=== PATIENT | female | born 1985 | race Caucasian/White ===

== ENCOUNTER 2017-03-06 06:10 | Inpatient (IN) | payer OTHER ==
[2017-03-06 07:11] VITALS: BMI 44.6
[2017-03-06] MEDS ORDERED: ELECTROLYTE-148 SOLN 500 ML IV ONE (07:52)
[2017-03-06] MEDS ORDERED: CITRIC ACID/SODIUM CITRATE 30 ML UNIT-DOSE CUP PO ONE (07:52)
[2017-03-06] MEDS ORDERED: ELECTROLYTE-148 SOLN 1,000 ML IV SCH (08:00)
[2017-03-06] MEDS ORDERED: ONDANSETRON 4 MG/2 ML VIAL IVPB PRN (08:02)
[2017-03-06] MEDS ORDERED: morphine SULFATE/Preservative Free 0.5 MG/ML (1cc Syringe) EP ONE (08:02)
--- NOTE | 2017-03-06 08:10 | HP ---
Past Medical History - Primary Care Physician PCP:: Kandice Patel - Admission Chief Complaint: 31 ys , 39 weeks previous c/s x3, GDM diet controlled , requests for repeat c/s History of Present Illness: pnc at [address] [place] [id number]. wt gain 35 lbs work Up Opos, , Rpr nr, Hiv neg, Hbsag neg,, Rubella pos, pap nilm, 1 hr Gtt 137, 3 hr gtt 89, 216, 171, 147, GDM diagnosed MFM managed diabetes( GDM) , diet controlled, monitored by serial sono, , BPP, nst reactive , Quantiferon pos, gc/ct neg, Gbs -neg NT screen neg, Modified, sequential neg, MFM sono noted, echo normal History Source: Patient, Medical Record Limitations to Obtaining History: No Limitations - Past Medical History TRAVEL PT: No: Migraine, Seizure Cardiovascular: No: HTN, Murmur Pulmonary: No: Asthma Gastrointestinal: No: Constipation, Gastritis Renal/: No: UTI ...: 4 ...Para: 3 ...Term: 3 ...: 0 ...Spon : 0 ...Induced : 0 ...Multiple Gestation: 0 ...LMP: 06/01/16 ... Weeks Gestation by Dates: 39.4 ...EDC by Dates: 03/08/17 ...EDC by Sono: 03/12/17 (39.2 weeks by sono ) Additional OB History: G1 10/10/2005 primar c/s -40 weeks 7'12' [facility]. G2 09/03 Repeat c/s 40 weeks, 7' [facility]. G3 02/16/2015 repeat c/s 40 weeks 7'2" h/o GDM sj[facility] Heme/Onc: Yes: Anemia Infectious Disease: No: HIV, STD's Psych: No: Addictions, Bipolar, Depression, Panic Endocrine: Yes: Other (GDM diet controlled) - Past Surgical History Past Surgical History: Yes: (08/2005, 08/2013, 01/2015) Hx Myomectomy: No Hx Transabdominal Cerclage: No - Smoking History Smoking history: Never smoked Have you smoked in the past 12 months: No Aproximately how many cigarettes per day: 0 - Alcohol/Substance Use Hx Alcohol Use: No History of Substance Use: reports: None Home Medications - Allergies Allergies/Adverse Reactions: Allergies Allergy/AdvReac Type Severity Reaction Status Date / Time No Known Allergies Allergy Verified 02/26/17 11:25 - Home Medications Home Medications: Ambulatory Orders Vit/Iron Fumarate/FA [ Tablet] 1 each PO DAILY 01/24/17 Physical Exam - Maternity Vital Signs: Vital Signs Temperature 98.1 F 03/06/17 06:10 Pulse Rate 79 03/06/17 06:10 Respiratory Rate 20 03/06/17 06:10 Blood Pressure 124/71 03/06/17 06:10 O2 Sat by Pulse Oximetry (%) Selected Entries 03/06/17 06:10 Weight 260 lb Constitutional: Yes: Well Nourished, No Distress, Obese Eyes: Yes: WNL HENT: Yes: WNL, Normocephalic Neck: Yes: WNL Cardiovascular: Yes: WNL, Regular Rate and Rhythm Breast(s): Yes: WNL - Abdominal Exam/OB Fundal Height: 40 Number of Fetuses: Single Presentation: Vertex Contractions: Yes Regularity: Irregular Intensity: Mild Monitor Mode: External (15) Heart Rate (range): 150 Heart Rate Location: [facility] Category: I Accelerations: Uniform Decelerations: Variable - Vaginal Exam/OB Vaginal Bleediing: No Speculum Exam: No Dilatation (cm): close Effacement (%): unefface Presentation: Vertex/Position Station: -3 - Physical Exam Musculoskeletal: Yes: WNL, Muscle Weakness Extremities: No: Calf Tenderness Edema: LLE: 1+, RLE: 1+ Integumentary: Yes: Incision (pfannensteil scar) Deep Tendon Reflex Grade: Normal +2 ...Motor Strength: WNL Psychiatric: Yes: WNL, Alert, Oriented - Labs Lab Results: Laboratory Tests 03/04/17 03/04/17 03/04/17 10:59 10:59 10:59 WBC 6.9 D Hgb 11.8 Hct 35.5 Plt Count 203 D Neutrophils % 71.9 Lymphocytes % 20.8 D Monocytes % 6.0 D Eosinophils % 1.0 Basophils % 0.3 INR 0.90 Sodium Potassium Chloride Carbon Dioxide BUN Creatinine POC Glucometer Random Glucose Calcium Total Bilirubin AST ALT Albumin Urine Protein Negative Urine Glucose (UA) Negative Urine Ketones Negative Urine RBC <1 Urine WBC 8 Ur Epithelial Cells Many Urine Bacteria Rare RPR Titer 03/04/17 03/04/17 03/06/17 10:59 10:59 08:00 WBC Hgb Hct Plt Count Neutrophils % Lymphocytes % Monocytes % Eosinophils % Basophils % INR Sodium 138 Potassium 4.2 Chloride 106 Carbon Dioxide 23 BUN 12 Creatinine 0.5 L D POC Glucometer 78 Random Glucose 76 Calcium 8.2 L Total Bilirubin 0.4 D AST 15 D ALT 10 L D Albumin 2.3 L D Urine Protein Urine Glucose (UA) Urine Ketones Urine RBC Urine WBC Ur Epithelial Cells Urine Bacteria RPR Titer Nonreactive Hemorrhage Risk Assessment - Risk Factors Medium Risk Factors: Yes: Obesity (BMI >40) Risk Score: 1 Risk Level: Medium Risk Problem List - Problems (1) with 39 completed weeks gestation Code(s): Z3A.39 - 39 WEEKS GESTATION OF (2) Previous delivery affecting Code(s): O34.21 - MATERNAL CARE FOR SCAR FROM PREVIOUS * DO NOT USE * (3) Morbid obesity with BMI of 40.0-44.9, adult Code(s): E66.01 - MORBID (SEVERE) OBESITY DUE TO EXCESS CALORIES Z68.41 - BODY MASS INDEX (BMI) 40.0-44.9, ADULT Assessment/Plan 31 yrs , , 39.2/7 weeks , previous c/s x3, not in labor ,morbid obesity , requests for repeat c/section
[2017-03-06] MEDS: OXYTOCIN 20 UNITS in 0.9% NS 1,000 ML IV SCH ×2 (09:35→22:46)
[2017-03-06] MEDS ORDERED: METHYLERGONOVINE MALEATE 0.2 MG/1 ML AMP IM PRN (09:44)
--- NOTE | 2017-03-06 09:58 | OP ---
Operative Note - Note: Operative Date: 03/06/17 Pre-Operative Diagnosis: 39 weeks, previous c/sx3, GDM, morbid obesity Operation: Repeat LFTC/Section Findings: 8.35 AM, Baby Boy, Vx LOT position, 9/9, Wt 6'14", Ht 19.5" , rectus muscle transected lateral, bilaterally both tubes & ovaries normal bladder high on lower segment adherent Both Tubes & Ovaries normal . dr fung compressor stations superintendent was present in the room Surgeon: Kandice Patel Estimator And Drafter Supervisor: Kiran Rosenthal Anesthesiologist/REAL ESTATE ATTORNEY: Ab Pickard Anesthesia: Spinal Specimens Removed: placenta. cord blood Estimated Blood Loss (mls): 500 Drains, Volume Out (mls): 100 (isabel color, lincoln out put ) Fluid Volume Replaced (mls): 1,300 (2 gm iv ancef )
[2017-03-06] MEDS ORDERED: ceFAZolin 2 GRAM PREMIX BAG IVPB SCH (10:00)
[2017-03-06] MEDS ORDERED: CEFAZOLIN 2 GM/D5W 50 ML IVPB SCH (12:00)
[2017-03-06] MEDS: CEFAZOLIN 2 GM/D5W 50 ML IVPB SCH (16:14)
[2017-03-06] MEDS: IBUPROFEN 800 MG/8 ML IJ IVPB PRN (22:45)
[2017-03-07] MEDS: CEFAZOLIN 2 GM/D5W 50 ML IVPB SCH ×2 (00:57→08:00)
[2017-03-07] MEDS: IBUPROFEN 800 MG/8 ML IJ IVPB PRN (06:10)
[2017-03-07] MEDS ORDERED: oxyCODONE HCL 5 MG TABLET PO PRN (08:00)
[2017-03-07 08:06] LABS: BASOPHIL 0.3 % (0-2.0); EOSINOPHIL 0.8 % (0-4.5); MCH 27.6 pg (25.7-33.7); MCHC 33.2 g/dl (32.0-36.0); MEAN CELL VOLUME 83.1 fl (80-96); MEAN PLT VOLUME 7.6 fl (7.5-11.1); NEUTROPHILS 80.5 % (42.8-82.8); PLATELET COUNT 162 K/MM3 (134-434); RDW 18.3 % (11.6-15.6); WHITE BLOOD COUNT 7.5 K/mm3 (4.0-10.0)
--- NOTE | 2017-03-07 08:42 | PN ---
Post Progress Note - Subjective Subjective: 31 yo Para 4, status post primary , seen and evaluated. Doing well, no complaints. Post Day: 1 Type of Delivery: Repeat C/S Vital Signs: Vital Signs Temperature 98.0 F 03/07/17 05:41 Pulse Rate 98 H 03/07/17 05:41 Respiratory Rate 20 03/07/17 06:09 Blood Pressure 115/78 03/07/17 05:41 O2 Sat by Pulse Oximetry (%) 100 03/06/17 10:20 Breast Exam: Yes: Soft Uterus: Yes: Fundus Firm Incision: Yes: Dressing dry and intact Abdomen/GI: Yes: Abdomen soft Lochia: Yes: Rubra Lochia, amount: Small Extremities: Yes: Calves non-tender Perineum: Yes: Intact Activity: Other (She's lying in bed) - Labs Labs: CBC WBC 7.5 K/mm3 (4.0-10.0) 03/07/17 06:00 RBC 4.01 M/mm3 (3.60-5.2) 03/07/17 06:00 Hgb 11.0 GM/dL (10.7-15.3) 03/07/17 06:00 Hct 33.3 % (32.4-45.2) 03/07/17 06:00 MCV 83.1 fl (80-96) 03/07/17 06:00 MCH 27.6 pg (25.7-33.7) 03/07/17 06:00 MCHC 33.2 g/dl (32.0-36.0) 03/07/17 06:00 RDW 18.3 % (11.6-15.6) H 03/07/17 06:00 Plt Count 162 K/MM3 (134-434) D 03/07/17 06:00 MPV 7.6 fl (7.5-11.1) 03/07/17 06:00 Neutrophils % 80.5 % (42.8-82.8) 03/07/17 06:00 Lymphocytes % 13.7 % (8-40) D 03/07/17 06:00 Monocytes % 4.7 % (3.8-10.2) 03/07/17 06:00 Eosinophils % 0.8 % (0-4.5) 07/18/17 06:00 Basophils % 0.3 % (0-2.0) 03/07/17 06:00 Assessment/Plan Status post primary Stable Ambulation Analgesia as needed Anticipate
[2017-03-07] MEDS ORDERED: BISACODYL 10 MG SUPP.RECT RC PRN (09:44)
[2017-03-07] MEDS: OXYTOCIN 20 UNITS in 0.9% NS 1,000 ML IV SCH (09:45)
[2017-03-07] MEDS: ENOXAPARIN NA (PORCINE) 40 MG/0.4 ML DISP.SYRIN SQ SCH (10:00)
[2017-03-07] MEDS ORDERED: DIPHTH,PERTUSS(ACELL),TET 0.5 ML DISP.SYRIN IM ONE (11:52)
--- NOTE | 2017-03-07 13:41 | OP ---
DATE OF OPERATION: 03/06/2017 PREOPERATIVE DIAGNOSIS: A 39-week , previous section x3, gestational diabetes diet-controlled, morbid obesity. OPERATION DONE: A repeat low flap transverse section. SURGEON: Kandice Patel MD MICROSTRATEGY ARCHITECT SURGEON: THAI Moon ANESTHESIOLOGIST: Ab Pickard MD ANESTHESIA: Spinal. FINDINGS: This is a 31-year-old 4 para 3-0-0-3 at 39.2 weeks gestation , not in labor, patient is obese, BMI is 44.6, weight is 260 pounds. PROCEDURE: Patient was taken to the operating room table. Abdomen was shaved, prepped. De La Rosa catheter was placed. Spinal anesthesia was given. She was placed in supine position. Then, abdomen was painted and draped in the usual manner. A Pfannenstiel incision was made through previous scar. The skin and subcutaneous tissue were entered. Anterior rectus sheath with scar tissue was incised transversely, and the muscles were laterally. The parietal peritoneum was opened vertically. Only a small opening could be opened, and bladder was high. The rectus muscle was transected laterally on both sides. Then, adequate exposure was obtained. The bladder was pushed down. There were some adhesions in the lower flap, which were incised, and the lower uterine segment was , and the bladder was still high, adherent in the lower segment. Incision was made transversely and further extended laterally. Then, amniotic fluid was cleared. Baby boy was delivered at 8:35 a.m. from LOT position. was 9, 9. Cord was clamped, cut. Cord blood was collected. Babys weight was [address] Whaley, the pharmacy technician program director, was present in the room. Then, placenta was removed completely with the membranes. Uterine cavity was cleaned. Then, the uterine incision was closed in two layers. The first layer was a continuous locking with a Biosyn 0 suture, second layer was a continuous intermittently locking with a transverse mattress suture, intermittently locking Biosyn 0 suture was used. Then, some hemostatic sutures were required to complete hemostasis, then, Biosyn suture. Both the tubes and ovaries were normal. Sponge, instrument, and needle counts were correct. Irrigation was done. Then, the closure of the abdomen was done. The parietal peritoneum was closed transversely with vicryl o suture . Muscles were approximated together with a Biosyn 0 suture. A pursestring suture was taken from the left side to the right side muscles to the left side, and muscles were approximated together. Then, anterior rectus sheath was mobilized from the scar of the skin both sides, and it was freed and hemostasis was checked below anterior rectus sheath flap. Anterior rectus sheath was closed with a Vicryl 0 suture. Hemostasis was verified, and subcutaneous tissue was approximated with a Biosyn 0 suture and interrupted suture, and the skin was approximated with deena. Estimated blood loss was 500 mL. Pressure dressing was given. Blood clots were removed from the vagina. Urine output intraoperatively was 100 mL, and she was given 2 g of IV Ancef prior to the incision. Patient tolerated the procedure well, and she was transferred to the recovery room in stable condition. Aniya [id number] MTDD
--- NOTE | 2017-03-07 14:49 | PN ---
Progress Note, Physician Chief Complaint: s/p c section under spinal anesthesia History of Present Illness: post op day one duramorph in spinal for post op pain control - Current Medication List Current Medications: Active Medications Acetaminophen (Tylenol -) 650 mg PO Q4H PRN PRN Reason: FEVER OR PAIN Bisacodyl (Dulcolax Suppository -) 10 mg RC PRN PRN PRN Reason: CONSTIPATION Diphenhydramine HCl (Benadryl Injection -) 25 mg IVPUSH Q4H PRN PRN Reason: Pruritis Last Admin: 03/06/17 18:21 Dose: 25 mg Enoxaparin Sodium (Lovenox -) 40 mg SQ DAILY [facility] Last Admin: 03/07/17 10:00 Dose: 40 mg Ferrous Sulfate (Feosol -) 325 mg PO BID [facility] Oxytocin/Sodium Chloride (Normal Saline+20 Units Oxytocin -) 1,000 mls @ 125 mls/hr IV ASDIR [facility] Last Admin: 03/06/17 22:46 Dose: 125 mls/hr Cefazolin Sodium/Dextrose (Ancef 2 Gm Premixed Ivpb -) 50 mls @ 100 mls/hr IVPB Q8H [facility] Stop: 03/07/17 15:59 Last Admin: 03/07/17 08:00 Dose: 100 mls/hr Ibuprofen (Caldolor Injection -) 600 mg IVPB Q8H PRN PRN Reason: FEVER Last Admin: 03/07/17 06:10 Dose: 600 mg Ibuprofen (Motrin -) 600 mg PO Q4H PRN PRN Reason: PAIN Methylergonovine Maleate (Methergine Injection -) 0.2 mg IM Q4H PRN PRN Reason: Excessive Bleeding (L&D) Last Admin: 03/06/17 22:44 Dose: 0.2 mg Oxycodone HCl (Roxicodone -) 5 mg PO Q4H PRN PRN Reason: PAIN LEVEL 1-5 Oxycodone HCl (Roxicodone -) 10 mg PO Q4H PRN PRN Reason: PAIN LEVEL 6-10 Multivit/Folic Acid/Iron ( Vitamins (Sjr) -) 1 tab PO DAILY [facility] Senna/Docusate Sodium (Pericolace -) 2 tablet PO HS PRN PRN Reason: CONSTIPATION Simethicone (Mylicon -) 80 mg PO Q4H PRN PRN Reason: GAS - Objective Vital Signs: Vital Signs Temperature 98.4 F 03/07/17 09:00 Pulse Rate 79 03/07/17 09:00 Respiratory Rate 20 03/07/17 11:00 Blood Pressure 112/76 03/07/17 09:00 O2 Sat by Pulse Oximetry (%) 100 03/06/17 10:20 Constitutional: Yes: Well Nourished Cardiovascular: Yes: WNL Respiratory: Yes: WNL Gastrointestinal: Yes: WNL Neurological: Yes: WNL Labs: CBC, BMP 03/07/17 06:00 Assessment/Plan Patient doing well, no adverse effect of anesthetic, complain of itching, controlled by benadryl, pain controlled, dept of anesthesiology will sign off care at this time
[2017-03-07] MEDS: IBUPROFEN 600 MG TABLET (FP) PO PRN (15:00)
[2017-03-07] MEDS: SIMETHICONE 80 MG TAB.CHEW (FP) PO PRN ×2 (15:00→21:43)
[2017-03-07] MEDS: ACETAMINOPHEN 325 MG TABLET (FP) PO PRN ×2 (15:01→21:40)
[2017-03-07] MEDS: PRENATAL VITAMINS W/ FOLIC ACID TABLET (FP) PO SCH (16:21)
[2017-03-07] MEDS: SENNOSIDES/DOCUSATE COMBO (SENNA PLUS) TABLET (UD) PO PRN (21:40)
[2017-03-07] MEDS: FERROUS SO4 325 MG TABLET (FP) PO SCH (21:40)
[2017-03-07] MEDS: oxyCODONE HCL 5 MG TABLET PO PRN (21:41)
[2017-03-08] MEDS: ACETAMINOPHEN 325 MG TABLET (FP) PO PRN ×3 (06:16→20:04)
[2017-03-08] MEDS: oxyCODONE HCL 5 MG TABLET PO PRN ×3 (06:17→20:03)
[2017-03-08] MEDS: SIMETHICONE 80 MG TAB.CHEW (FP) PO PRN ×3 (06:17→20:03)
[2017-03-08] MEDS: FERROUS SO4 325 MG TABLET (FP) PO SCH ×2 (10:10→21:12)
[2017-03-08] MEDS: PRENATAL VITAMINS W/ FOLIC ACID TABLET (FP) PO SCH (10:10)
[2017-03-08] MEDS: ENOXAPARIN NA (PORCINE) 40 MG/0.4 ML DISP.SYRIN SQ SCH (10:10)
--- NOTE | 2017-03-08 12:00 | PN ---
Post Progress Note - Subjective Subjective: 31 yo Para 4 status post repeat , seen and evaluated. She's out of bed to chair. No complaints Post Day: 2 Type of Delivery: Repeat C/S Vital Signs: Vital Signs Temperature 98.5 F 03/08/17 09:23 Pulse Rate 94 H 03/08/17 09:23 Respiratory Rate 20 03/08/17 09:23 Blood Pressure 128/74 03/08/17 09:23 O2 Sat by Pulse Oximetry (%) 100 03/06/17 10:20 Uterus: Yes: Fundus Firm Incision: Yes: Elliot intact Abdomen/GI: Yes: Abdomen soft, Tolerating PO Lochia: Yes: Rubra Lochia, amount: Small Extremities: Yes: Calves non-tender Perineum: Yes: Intact Activity: Ambulating - Labs Labs: CBC WBC 7.5 K/mm3 (4.0-10.0) 03/07/17 06:00 RBC 4.01 M/mm3 (3.60-5.2) 03/07/17 06:00 Hgb 11.0 GM/dL (10.7-15.3) 03/07/17 06:00 Hct 33.3 % (32.4-45.2) 03/07/17 06:00 MCV 83.1 fl (80-96) 03/07/17 06:00 MCH 27.6 pg (25.7-33.7) 03/07/17 06:00 MCHC 33.2 g/dl (32.0-36.0) 03/07/17 06:00 RDW 18.3 % (11.6-15.6) H 03/07/17 06:00 Plt Count 162 K/MM3 (134-434) D 03/07/17 06:00 MPV 7.6 fl (7.5-11.1) 03/07/17 06:00 Neutrophils % 80.5 % (42.8-82.8) 03/07/17 06:00 Lymphocytes % 13.7 % (8-40) D 03/07/17 06:00 Monocytes % 4.7 % (3.8-10.2) 03/07/17 06:00 Eosinophils % 0.8 % (0-4.5) 03/07/17 06:00 Basophils % 0.3 % (0-2.0) 03/07/17 06:00 Assessment/Plan Status post primary Stable Ambulation Analgesia as needed Continue routine Post op care
[2017-03-08] MEDS: SENNOSIDES/DOCUSATE COMBO (SENNA PLUS) TABLET (UD) PO PRN (21:12)
[2017-03-09 07:36] LABS: BASOPHIL 0.3 % (0-2.0); EOSINOPHIL 2.2 % (0-4.5); MCH 27.5 pg (25.7-33.7); MCHC 32.8 g/dl (32.0-36.0); MEAN PLT VOLUME 7.4 fl (7.5-11.1); NEUTROPHILS 76.1 % (42.8-82.8); PLATELET COUNT 199 K/MM3 (134-434); RDW 18.7 % (11.6-15.6); WHITE BLOOD COUNT 8.3 K/mm3 (4.0-10.0)
[2017-03-09] MEDS: ACETAMINOPHEN 325 MG TABLET (FP) PO PRN (07:50)
[2017-03-09] MEDS: IBUPROFEN 600 MG TABLET (FP) PO PRN (07:51)
[2017-03-09] MEDS: SIMETHICONE 80 MG TAB.CHEW (FP) PO PRN (07:51)
[2017-03-09] MEDS: FERROUS SO4 325 MG TABLET (FP) PO SCH (09:34)
[2017-03-09] MEDS: ENOXAPARIN NA (PORCINE) 40 MG/0.4 ML DISP.SYRIN SQ SCH (09:34)
[2017-03-09] MEDS: PRENATAL VITAMINS W/ FOLIC ACID TABLET (FP) PO SCH (09:34)
[2017-03-09 09:54] VITALS: BP 124/74; PULSE 88; TEMP 97.6
--- NOTE | 2017-03-09 12:09 | DS ---
Physical Exam-STUCCO WORKER Vital Signs: Vital Signs Temperature 97.6 F 03/09/17 09:53 Pulse Rate 88 03/09/17 09:53 Respiratory Rate 18 03/09/17 09:53 Blood Pressure 124/74 03/09/17 09:53 O2 Sat by Pulse Oximetry (%) 100 03/06/17 10:20 Constitutional: Yes: Well Nourished, Obese, Other (no c/o dizziness pain scale 3 -4) Eyes: Yes: WNL HENT: Yes: WNL, Normocephalic Neck: Yes: WNL Cardiovascular: Yes: WNL, Regular Rate and Rhythm Respiratory: Yes: WNL, Regular, CTA Bilaterally Gastrointestinal: Yes: WNL, Normal Bowel Sounds, Soft, Abdomen, Obese Renal/: Yes: WNL, Other (voiding without difficulty) Pelvis: Yes: WNL External Genitalia: Yes: Normal ....Post : Yes: Uterus firm (below umblicus), Uterus non-tender, Moderate lochia rubra (perineum intact) Breast(s): Yes: WNL (not engorged. not BF) Musculoskeletal: Yes: WNL Extremities: Yes: WNL. No: Calf Tenderness Edema: LLE: 1+, RLE: 1+ Wound/Incision: Yes: Clean/Dry, Well Approximated, Deena Intact, Open to air. No: Draining, Reddened, Bleeding Neurological: Yes: WNL, Alert, Oriented ...Motor Strength: WNL Psychiatric: Yes: WNL, Alert, Oriented Labs: CBC, BMP 03/09/17 06:00 Laboratory Tests 03/08/17 03/08/17 03/08/17 11:01 16:58 21:11 POC Glucometer 101 127 116 03/09/17 03/09/17 06:11 10:39 POC Glucometer 88 81 Delivery - Delivery Type of Anesthesia: Spinal Episiotomy/Laceration: None EBL (cc): 500 Delivery, Single - Stages of Labor Date of Delivery: 03/06/17 Time of Delivery: 08:35 Time Placenta Delivered: 08:36 - Condition of Standards Engineer/Boat Garnisher Present: Yes Name: Chitra Whaley Infant Gender: Male Weight: 6 lb 14 oz Position: Left, OT Total Hours ROM (Hrs/Mins): 3MIN - 1 Minute Total Score: 9 5 Minutes Total Score: 9 - Feeding Plan Initial Plan: Elected not to breastfeed exclusively throughout hospitalization Remarks - Remarks Remarks: p31 yrs , 39 weeks , previous c/sx3 , requests for repeat c/s . care at , [facility] H/O GDM diet controlled, PO bgm wnl gbs neg Delivery by repeat c/section on 03/06/17 po course uneventful. pt will go to the clinic for deena removal next week anemia counselled pt requests for discharge today 03/09/17 Discharge Summary Reason For Visit: LABOR ADMIT Current Active Problems Anemia (Acute) Delivery by (planned) section occurring after 37 completed weeks of gestation but before 39 completed weeks gestation due to (spontaneous) onset of labor, with mention of complication (Acute) Morbid obesity with BMI of 40.0-44.9, adult (Acute) with 39 completed weeks gestation (Acute) Condition: Stable - Instructions Diet, Activity, Other Instructions: Post Instructions DIET: Continue good diet high in protein, calcium, and iron rich foods. Drink at least eight (8) glasses of water daily in addition to other fluids. LoCarb/Low Calorie diet, ADa as recommended durin pregn for diabetes MEDICATIONS: Continue vitamins and iron as previously directed. Motrin and Tylenol may be taken for minor discomfort. ACTIVITY: Mild to moderate exercise may be started in two (2) weeks. Take frequent rest periods. Resume normal activity after six (6) week check up. WOUND CARE OF OPERATIVE SITE: Continue use of perineal bottle until vaginal discharge stops. Keep area clean. Shower daily. Keep abdominal wound dry. Report any drainage or redness to physician. Tub baths, tampons and douches are not permitted for [address] Breast feeding or Bottle feeding BREAST CARE: (For those that are not breast feeding): If engorgement occurs: Wear tight fitting bra. Take Tylenol or Motrin for pain. Apply cold packs (ice in bags to each breast ) FAMILY PLANNING: There are many control alternatives to pursue and they should be discussed at your first office visit. You may resume sexual activity after your six (6) week check up. (Remember, breast feeding is not a contraceptive) NEXT PHYSICIAN APPOINTMENT: Be certain to call for a one (1) week appointment, unless otherwise directed. for deena removal & wound check Check BGm fasting & 2hr pp twice a week . Do 3 hr GTT with PCP after 3 Months Call Clinic or got to Emergency Dept if you have any of the following: Heavy vaginal bleeding Painful urination Leg pain Unusual odor noted to vaginal bleeding High fever Red streaking noted on breast Referrals: Kandice Patel MD [Staff Physician] - Disposition: HOME - Home Medications Comprehensive Discharge Medication List: Ambulatory Orders Vit/Iron Fumarate/FA [ Tablet] 1 each PO DAILY 01/24/17 Acetaminophen [Tylenol .Regular Strength -] 650 mg PO Q4H PRN #0 tablet Ferrous Sulfate [Feosol] 325 mg PO BID #60 tab 03/09/17 Ibuprofen [Motrin -] 600 mg PO Q4H PRN #30 tablet 03/09/17 Vitamins (Sjr) - 1 tab PO DAILY tablet 03/09/17
== END 2017-03-09 13:20 | disposition home or self-care (01) | DRG 540 ==
LOC: JLDR 06:10 → J3W 11:00
PROVIDERS: ADMIT Obstetrics & Gynecology; ATTEND Obstetrics & Gynecology
PROC: 10D00Z1 Extraction of Products of Conception, Low, Open Approach (ICD-10-PCS; principal; 2017-03-06)
DX: O34.211 Maternal care for low transverse scar from previous cesarean delivery (principal); O99.214 Obesity complicating childbirth; E66.01 Morbid (severe) obesity due to excess calories; Z68.41 Body mass index [BMI] 40.0-44.9, adult; O24.420 Gestational diabetes mellitus in childbirth, diet controlled; O99.02 Anemia complicating childbirth; D64.9 Anemia, unspecified; Z3A.39 39 weeks gestation of pregnancy; Z37.0 Single live birth
CPT/HCPCS: 36415; 71020-TC; 85025; 90715

== ENCOUNTER 2017-03-14 20:34 | Emergency (ER) | payer OTHER ==
[2017-03-14 20:44] VITALS: BMI 42.5
[2017-03-14 22:01] LABS: BASOPHIL 0.6 % (0-2.0); EOSINOPHIL 2.5 % (0-4.5); MCH 26.8 pg (25.7-33.7); MCHC 32.3 g/dl (32.0-36.0); MEAN CELL VOLUME 83.2 fl (80-96); MEAN PLT VOLUME 6.8 fl (7.5-11.1); PLATELET COUNT 361 K/MM3 (134-434); RDW 18.2 % (11.6-15.6); WHITE BLOOD COUNT 8.3 K/mm3 (4.0-10.0)
[2017-03-14 22:13] LABS: INR 0.95 (0.82-1.09); PROTHROMBIN TIME (PATIENT) 10.4 SEC (9.98-11.88)
--- NOTE | 2017-03-14 22:28 | PDOC ---
History of Present Illness - History of Present Illness Initial Comments: 03/15/17 00:06 Patient is a 31 year old female with significant medical hx of x 4 ( most recent one week ago) who is presenting to the ED with increased pelvic cramping and vaginal bleeding since today. The patient reports moderate vaginal bleeding that began this afternoon; she notes saturating one pad. The patient denies any problems with recent . Denies fever, nausea, vomiting, diarrhea, or urinary complaints. PCP: Vira Montano <Loan Miles - Last Filed: 03/15/17 00:37> <Freida Cantu - Last Filed: 03/15/17 02:31> - General Chief Complaint: Vaginal Bleeding Stated Complaint: VAGINAL BLEEDING Time Seen by Provider: 03/14/17 20:53 Past History <Loan Miles - Last Filed: 03/15/17 00:37> - Past Medical History Asthma: No Cancer: No Cardiac Disorders: No Diabetes: Yes HTN: Yes Seizures: No Thyroid Disease: No - Reproductive History Is Patient Now?: No (#): 2 Para: 1 Cervical CA: No Dysfunctional Uterine Bleeding: No Ectopic : No Endometrial CA: No Polycystic Ovaries: No Therapeutic (s) & number: No Tubal Ligation: No - Immunization History Immunization Up to Date: Yes - Psycho/Social/Smoking Cessation Hx Anxiety: No Suicidal Ideation: No Smoking Status: No Smoking History: Never smoked Have you smoked in the past 12 months: No Number of Cigarettes Smoked Daily: 0 Information on smoking cessation initiated: No Hx Alcohol Use: No Drug/Substance Use Hx: No Substance Use Type: None Hx Substance Use Treatment: No <Freida Cantu - Last Filed: 03/15/17 02:31> - Past Medical History Allergies/Adverse Reactions: Allergies Allergy/AdvReac Type Severity Reaction Status Date / Time No Known Allergies Allergy Verified 03/14/17 20:44 Home Medications: Ambulatory Orders Vit/Iron Fumarate/FA [ Tablet] 1 each PO DAILY 01/24/17 Acetaminophen [Tylenol .Regular Strength -] 650 mg PO Q4H PRN #0 tablet Ferrous Sulfate [Feosol] 325 mg PO BID #60 tab 03/09/17 Ibuprofen [Motrin -] 600 mg PO Q4H PRN #30 tablet 03/09/17 Vitamins (Sjr) - 1 tab PO DAILY tablet 03/09/17 Methylergonovine Maleate [Methergine -] 0.2 mg PO TID #6 tablet 03/15/17 Review of Systems - Review of Systems Comments:: 03/15/17 00:09 CONSTITUTIONAL: Absent: fever, chills, diaphoresis, generalized weakness, malaise, loss of appetite HEENT: Absent: rhinorrhea, nasal congestion, throat pain, throat swelling, difficulty swallowing, mouth swelling, ear pain, eye pain, visual changes CARDIOVASCULAR: Absent: chest pain, syncope, palpitations, irregular heart rate, lightheadedness , peripheral edema RESPIRATORY: Absent: cough, shortness of breath, dyspnea with exertion, orthopnea, wheezing, stridor, hemoptysis GASTROINTESTINAL: Present: pelvic cramping Absent: abdominal distension, nausea, vomiting, diarrhea, constipation, melena, hematochezia GENITOURINARY: Present: vaginal bleeding Absent: dysuria, frequency, urgency, hesitancy, hematuria, flank pain, genital pain MUSCULOSKELETAL: Absent: myalgia, arthralgia, joint swelling SKIN: Absent: rash, itching, pallor HEMATOLOGIC/IMMUNOLOGIC: Absent: easy bleeding, easy bruising, lymphadenopathy, frequent infections ENDOCRINE: Absent: unexplained weight gain, unexplained weight loss, heat intolerance, cold intolerance NEUROLOGIC: Absent: headache, focal weakness or paresthesia, dizziness, unsteady gait, seizure, mental status changes, bladder or bowel incontinence. PSYCHIATRIC: Absent: anxiety, depression, suicidal or homicidal ideation, hallucinations <Ginger,Loan - Last Filed: 03/15/17 00:37> *Physical Exam - Vital Signs Last Vital Signs Temp Pulse Resp BP Pulse Ox 98.7 F 95 H 22 124/80 99 03/14/17 20:40 03/14/17 20:40 03/14/17 20:40 03/14/17 20:40 03/14/17 20:40 - Physical Exam Comments: 03/15/17 00:10 GENERAL: Well developed, well nourished. Awake and alert. No acute distress. HEENT: Normocephalic, atraumatic. PERRLA, EOMI. No conjunctival pallor. Sclera are non- icteric. Moist mucous membranes. Oropharynx is clear. NECK: Supple. Full ROM. No JVD. Carotid pulses 2+ and symmetric, without bruits. No thyromegaly. No lymphadenopathy. CARDIOVASCULAR: Regular rate and rhythm. No murmurs, rubs, or gallops. Distal pulses are 2+ and symmetric. PULMONARY: No evidence of respiratory distress. Lungs clear to auscultation bilaterally. No wheezing, rales or rhonchi. ABDOMINAL: Soft. Non-tender. Non-distended. No rebound or guarding. No organomegaly. Normoactive bowel sounds. MUSCULOSKELETAL: Normal range of motion at all joints. No bony deformities or tenderness. No CVA tenderness. EXTREMITIES: No cyanosis. No clubbing. No edema. No calf tenderness. SKIN: Warm and dry. Normal capillary refill. No rashes. No jaundice. NEUROLOGICAL: Alert, awake, appropriate. Cranial nerves 2-12 intact. Normal speech. Gait is normal without ataxia. PSYCHIATRIC: Cooperative. Good eye contact. Appropriate mood and affect. PELVIC: Minor bleeding, blood fills speculum. Dunlevy present from , no purulence. <Loan Miles - Last Filed: 03/15/17 00:37> - Vital Signs Last Vital Signs Temp Pulse Resp BP Pulse Ox 98.7 F 95 H 22 124/80 99 03/14/17 20:40 03/14/17 20:40 03/14/17 20:40 03/14/17 20:40 03/14/17 20:40 <Freida Cantu - Last Filed: 03/15/17 02:31> ED Treatment Course - LABORATORY CBC & Chemistry Diagram: 03/14/17 21:56 - ADDITIONAL ORDERS Additional order review: Laboratory Results 03/14/17 03/14/17 03/14/17 22:38 22:38 21:56 INR Beta HCG, Quant 2.3 Urine Color Red Urine Appearance Cloudy Urine pH 5.0 D Urine Protein 2+ H Urine Glucose (UA) 1+ H Urine Ketones Negative Urine Blood 3+ H Urine Nitrite Negative Urine Bilirubin Negative Urine Urobilinogen Negative Ur Leukocyte Esterase 1+ H Urine RBC 8523 Urine WBC 195 Blood Type O POSITIVE Antibody Screen Negative 03/14/17 21:56 INR 0.95 Beta HCG, Quant Urine Color Urine Appearance Urine pH Urine Protein Urine Glucose (UA) Urine Ketones Urine Blood Urine Nitrite Urine Bilirubin Urine Urobilinogen Ur Leukocyte Esterase Urine RBC Urine WBC Blood Type Antibody Screen 03/14/17 21:56 RBC 4.45 D MCV 83.2 MCHC 32.3 RDW 18.2 H MPV 6.8 L Neutrophils % 72.0 Lymphocytes % 19.3 Monocytes % 5.6 Eosinophils % 2.5 Basophils % 0.6 - RADIOLOGY Radiograph Interpretation: 03/15/17 00:38 Remelt Operator: (raphael) Report Date: 03/14/2017 23:27:00 Report Status: Preliminary Begin of Report Content Referring Physician: Freida Cantu Patient Name: Veronica Romeo THIS IS A PRELIMINARY REPORT FROM [facility] IMAGES: 24 EXAM DATE AND TIME: 2017-03-14 23:27:26.0 EXAM: TRANSVAGINAL ULTRASOUND Enlarged uterus, compatible with state. Endometrial stripe complex is heterogeneous and 3.5 cm thick, probably representing blood products. No focal hypervascularity to suggest retained products of conception. Ovaries not seen. No free fluid. THIS DOCUMENT HAS BEEN ELECTRONICALLY SIGNED Charlette Rich M.D. 03/15/2017 00:13 REYNALDO Kwan Please call [facility] Expert [phone] ([phone]) with questions. End of Report Content - Medications Given in the ED: ED Medications Discontinued Medications Generic Name Dose Route Start Last Admin Trade Name Freq PRN Reason Stop Dose Admin Acetaminophen 650 mg 03/14/17 23:29 03/14/17 23:42 Tylenol - PO 03/14/17 23:30 650 mg ONCE ONE Administration <Loan Miles - Last Filed: 03/15/17 00:37> - LABORATORY CBC & Chemistry Diagram: 03/14/17 21:56 - ADDITIONAL ORDERS Additional order review: Laboratory Results 03/14/17 21:56 INR 0.95 03/14/17 21:56 RBC 4.45 D MCV 83.2 MCHC 32.3 RDW 18.2 H MPV 6.8 L Neutrophils % 72.0 Lymphocytes % 19.3 Monocytes % 5.6 Eosinophils % 2.5 Basophils % 0.6 <Freida Cantu - Last Filed: 03/15/17 02:31> Medical Decision Making - Medical Decision Making 03/15/17 00:57 51-year-old female who is 4 para 4 had a as Leeann's on by Dr. Patel and presents for increasing vaginal cramping and bleeding that started this afternoon She is not febrile, she is normotensive. She is not tachycardic. Review of labs show that her hematocrit is 34 and her platelets are within normal limits Speculum exam did show some moderate vaginal bleeding Ultrasound showed an enlarged uterus compatible with a state. Her endometrial stripe complexes heterogeneous and 3.5 cm thick. No focal hypervascularity to suggest retained products of conception. Dr. Rendon paged to discuss case 03/15/17 02:30 pt will be given methergin and RX written for 6 tbs plan-followup with identification printing machine setter this week at clinic <Freida Cantu - Last Filed: 03/15/17 02:31> *DC/Admit/Observation/Transfer - Attestations Scribe Attestion: 03/15/17 00:12 Documentation prepared by Loan Miles, acting as medical investigator for Freida Cantu MD. <Loan Miles - Last Filed: 03/15/17 00:37> <Freida Cantu - Last Filed: 03/15/17 02:31> Diagnosis at time of Disposition: Wound hemorrhage following section, - Discharge Dispostion Disposition: HOME Condition at time of disposition: Stable - Prescriptions Prescriptions: Methylergonovine Maleate [Methergine -] 0.2 mg PO TID #6 tablet - Referrals Referrals: Vira Richter MD [Primary Care Provider] - Kandice Patel MD [Staff Physician] - - Patient Instructions Printed Discharge Instructions: DI for Vaginal Bleeding Additional Instructions: please follow up with identification printing machine setter in the clinic pickling grader your prescription at your pharmacy
[2017-03-14 22:43] LABS: URINE APPEARANCE CLOUDY; URINE BILIRUBIN NEGATIVE (NEGATIVE); URINE BLOOD 3+ (NEGATIVE); URINE COLOR RED; URINE GLUCOSE (UA) 1+ (NEGATIVE); URINE KETONE NEGATIVE (NEGATIVE); URINE NITRITE NEGATIVE (NEGATIVE); URINE UROBILINOGEN NEGATIVE mg/dL (0.2-1.0)
[2017-03-14 22:45] LABS: URINE LEUK ESTERASE 1+ (NEGATIVE); URINE PROTEIN 2+ (NEGATIVE)
[2017-03-14 22:48] LABS: URINE RBC 8523 /hpf (0-3); URINE WBC 195 /hpf (3-5)
[2017-03-14] MEDS ORDERED: ACETAMINOPHEN 325 MG TABLET (FP) PO ONE (23:29)
[2017-03-14] MEDS ORDERED: ACETAMINOPHEN 325 MG TABLET (FP) ONE (23:40)
[2017-03-15] MEDS ORDERED: METHYLERGONOVINE MALEATE 0.2 MG/1 ML AMP IM ONE (01:21)
[2017-03-15 01:26] VITALS: BP 104/63; PULSE 81; TEMP 98.4
[2017-03-15] MEDS ORDERED: IBUPROFEN 600 MG TABLET (FP) PO ONE ×2 (01:42)
[2017-03-15] MEDS ORDERED: METHYLERGONOVINE MALEATE 0.2 MG/1 ML AMP ONE (01:42)
== END 2017-03-15 01:57 | disposition home or self-care (01) ==
LOC: JER 20:34
PROC: 3E023GC Introduction of Other Therapeutic Substance into Muscle, Percutaneous Approach (ICD-10-PCS; principal; 2017-03-14)
DX: O72.2 Delayed and secondary postpartum hemorrhage (principal); Z37.9 Outcome of delivery, unspecified
CPT/HCPCS: 36415; 76830-TC; 81003; 81015; 84702; 85025; 85610; 86850; 86900; 86901; 96372; 99282-25

== ENCOUNTER 2019-10-01 16:36 | Emergency (ER) | payer OTHER ==
[2019-10-01 16:43] VITALS: TEMP 97.8; BMI 42.9
--- NOTE | 2019-10-01 16:44 | PDOC ---
Rapid Medical Evaluation Time Seen by Provider: 10/01/19 16:40 Medical Evaluation: Allergies Allergy/AdvReac Type Severity Reaction Status Date / Time No Known Allergies Allergy Verified 03/14/17 20:44 10/01/19 16:40 Pt presents to the ER for abdominal pain for 2 weeks. Admits to vomiting and nausea. Last menstrual cycle was May 27 Exam: abdomen is soft with diffuse tenderness. No rebound or guarding Orders: labs, Pt to proceed to the ER for further evaluation Discharge Disposition - Diagnosis Abdominal pain - Referrals - Patient Instructions - Post Discharge Activity
[2019-10-01 17:20] LABS: BASO % 0.5 % (0-2.0); EOS % 3.1 % (0-4.5); HEMATOCRIT 37.8 % (32.4-45.2); HEMOGLOBIN 12.5 GM/dL (10.7-15.3); LYMPH % 34.2 % (8-40); MCH 28.4 pg (25.7-33.7); MCHC 33.1 g/dl (32.0-36.0); MEAN CELL VOLUME 85.9 fl (80-96); MEAN PLT VOLUME 7.7 fl (7.5-11.1); MONO % 5.6 % (3.8-10.2); NEUT % 56.6 % (42.8-82.8); PLATELET COUNT 258 K/MM3 (134-434); RDW 15.1 % (11.6-15.6); WHITE BLOOD COUNT 6.5 K/mm3 (4.0-10.0)
[2019-10-01 17:24] LABS: URINE APPEARANCE CLOUDY; URINE BILIRUBIN NEGATIVE (NEGATIVE); URINE COLOR YELLOW; URINE GLUCOSE (UA) NEGATIVE (NEGATIVE); URINE KETONE NEGATIVE (NEGATIVE); URINE LEUK ESTERASE NEGATIVE (NEGATIVE); URINE NITRITE NEGATIVE (NEGATIVE); URINE PROTEIN NEGATIVE (NEGATIVE)
[2019-10-01 18:06] LABS: ALBUMIN 3.2 g/dl (3.4-5.0); BILIRUBIN,TOTAL 0.3 mg/dL (0.2-1); BLOOD UREA NITROGEN 10.7 mg/dL (7-18); CALCIUM 8.3 mg/dL (8.5-10.1); CREATININE 0.6 mg/dL (0.55-1.3); POTASSIUM 4.1 mmol/L (3.5-5.1); TOT PROT 7.2 g/dl (6.4-8.2)
--- NOTE | 2019-10-01 18:28 | PDOC ---
History of Present Illness - General Chief Complaint: Pain Stated Complaint: ABD/PAIN/NAUSEA/VOMITTING Time Seen by Provider: 10/01/19 16:40 History Source: Patient Exam Limitations: No Limitations - History of Present Illness Initial Comments: 10/01/19 18:19 34 YOF who was previously (4 c-sections with 4 healthy children at home) who p/w low abdominal cramping/fullness radiating to the periumbilical region worsening for the past 2 weeks, with an additional onset of nausea and several episodes of NBNB vomiting since yesterday. States the pain feels the same as prior pregnancies. States LMP was in May 2019 and she took a negative home test in the beginning of July 2019. Denies f/c, diarrhea, constipation, dysuria, hematuria, vaginal bleeding or discharge. Past History - Past Medical History Allergies/Adverse Reactions: Allergies Allergy/AdvReac Type Severity Reaction Status Date / Time No Known Allergies Allergy Verified 10/01/19 16:40 Home Medications: Ambulatory Orders Vit/Iron Fum/Folic AC [ Tablet] 1 each PO DAILY 01/24/17 Acetaminophen [Tylenol .Regular Strength -] 650 mg PO Q4H PRN #0 tablet Ferrous Sulfate [Feosol] 325 mg PO BID #60 tab 03/09/17 Ibuprofen [Motrin -] 600 mg PO Q4H PRN #30 tablet 03/09/17 Vitamins (Sjr) - 1 tab PO DAILY tablet 03/09/17 Methylergonovine Maleate [Methergine -] 0.2 mg PO TID #6 tablet 03/15/17 Asthma: No Cancer: No Cardiac Disorders: No COPD: No Diabetes: Yes HTN: Yes Seizures: No Thyroid Disease: No - Reproductive History (#): 2 Para: 1 Cervical CA: No Dysfunctional Uterine Bleeding: No Ectopic : No Endometrial CA: No Polycystic Ovaries: No Therapeutic (s) & number: No Tubal Ligation: No - Immunization History Immunization Up to Date: Yes - Psycho Social/Smoking Cessation Hx Smoking Status: No Smoking History: Never smoked Have you smoked in the past 12 months: No Number of Cigarettes Smoked Daily: 0 Information on smoking cessation initiated: No Hx Alcohol Use: No Drug/Substance Use Hx: No Substance Use Type: None Hx Substance Use Treatment: No Review of Systems - Review of Systems Able to Perform ROS?: Yes Comments:: 10/01/19 18:28 GEN: no fever, chills, malaise, or generalized weakness HEENT: no ear pain, congestion, sore throat, vision change, or eye pain CV: no chest pain, palpitations, lightheadedness, syncope, or edema RESP: no SOB, wheezing, or cough GI: abdominal pain, nausea, vomiting, no diarrhea, constipation, or rectal bleed : no dysuria, hematuria, or discharge MSK: no muscle weakness or pain, no joint swelling or pain NEURO: no headache, vertigo, numbness, tingling, or focal weakness PSYCH: no SI, HI, or behavior change SKIN: no jaundice, rash, lesions, or unexplained bruises ROS otherwise negative except as noted in HPI *Physical Exam - Vital Signs Last Vital Signs Temp Pulse Resp BP Pulse Ox 97.8 F 91 H 18 120/49 L 98 10/01/19 16:40 10/01/19 16:40 10/01/19 16:40 10/01/19 16:40 10/01/19 16:40 - Physical Exam 10/01/19 18:29 GENERAL: well-appearing, pleasant, A/Ox4, no distress, answers questions appropriately, obese HEENT: PERRLA, EOMI, moist mucous membranes NECK/BACK: no midline ttp, no spinal stepoff or deformity, no hematoma, full ROM , neck supple CARDIOVASCULAR: regular rate/rhythm, no MGR, strong peripheral pulses, capillary refill <2 seconds, extremities wwp, no edema LUNGS/RESPIRATORY: no respiratory distress, CTAB GI/ABDOMEN: symmetric [id number], normoactive BS, soft, mild suprapubic ttp, no midline pulsatile masses : no CVA tenderness, pelvic speculum physiologic discharge with closed os and no bleeding, bimanual without adnexal or CMT EXTREMITIES: no muscle atrophy, no acute deformity SKIN: warm and dry, no pallor, no jaundice, no rash, no bruising, no skin breakdown, no cuts, no lesions NEUROLOGICAL: GCS 15, CN II-XII grossly intact, 5/5 strength proximally and distally, no facial droop ED Treatment Course - LABORATORY CBC & Chemistry Diagram: 10/01/19 16:55 10/01/19 16:55 - ADDITIONAL ORDERS Additional order review: Laboratory Results 10/01/19 10/01/19 10/01/19 16:55 16:55 16:55 Sodium 140 Potassium 4.1 Chloride 104 Carbon Dioxide 27 Anion Gap 9 BUN 10.7 Creatinine 0.6 Est GFR (CKD-EPI)AfAm 137.83 Est GFR (CKD-EPI)NonAf 118.92 Random Glucose 107 H Calcium 8.3 L Total Bilirubin 0.3 AST 15 ALT 20 Alkaline Phosphatase 106 Total Protein 7.2 Albumin 3.2 L Beta HCG, Quant 03187.9 Urine Color Yellow Urine Appearance Cloudy Urine pH 7.0 D Ur Specific Doole 1.028 Urine Protein Negative Urine Glucose (UA) Negative Urine Ketones Negative Urine Blood Negative Urine Nitrite Negative Urine Bilirubin Negative Urine Urobilinogen 1.0 Ur Leukocyte Esterase Negative Urine HCG, Qual Positive 10/01/19 16:55 RBC 4.40 MCV 85.9 MCHC 33.1 RDW 15.1 D MPV 7.7 D Neutrophils % 56.6 D Lymphocytes % 34.2 D Monocytes % 5.6 Eosinophils % 3.1 Basophils % 0.5 - RADIOLOGY Radiology Studies Ordered: Category Date Time Status TRANSVAGINAL US PREG [US] Stat Ultrasound 10/01/19 18:02 Ordered Medical Decision Making - Medical Decision Making 10/01/19 18:31 First trimester female p/w vaginal bleeding and lower abdominal pain at <20 wks gestation. Initial Vital Signs Temp Pulse Resp BP Pulse Ox 97.8 F 91 H 18 120/49 L 98 10/01/19 16:40 10/01/19 16:40 10/01/19 16:40 10/01/19 16:40 10/01/19 16:40 Exam: As noted in Physical Exam section. DDX IBNLT: threatened/inevitable/incomplete/complete/septic , ectopic, PID, TOA/cervicitis, endometritis, ruptured ovarian cyst, ovarian torsion, malignancy, menorrhagia, endometriosis, rectal bleed, hematuria, constipation, fibroids, etc. W/U ordered: Labs, TVUS TX ordered: None at this time - patient states pain is manageable without meds. Laboratory Tests 10/01/19 10/01/19 10/01/19 16:55 16:55 16:55 WBC 6.5 RBC 4.40 Hgb 12.5 Hct 37.8 MCV 85.9 MCH 28.4 MCHC 33.1 RDW 15.1 D Plt Count 258 D MPV 7.7 D Absolute Neuts (auto) 3.7 Neutrophils % 56.6 D Lymphocytes % 34.2 D Monocytes % 5.6 Eosinophils % 3.1 Basophils % 0.5 Nucleated RBC % 0 Sodium 140 Potassium 4.1 Chloride 104 Carbon Dioxide 27 Anion Gap 9 BUN 10.7 Creatinine 0.6 Est GFR (CKD-EPI)AfAm 137.83 Est GFR (CKD-EPI)NonAf 118.92 Random Glucose 107 H Calcium 8.3 L Total Bilirubin 0.3 AST 15 ALT 20 Alkaline Phosphatase 106 Total Protein 7.2 Albumin 3.2 L Beta HCG, Quant 61231.9 Urine Color Urine Appearance Urine pH Ur Specific Doole Urine Protein Urine Glucose (UA) Urine Ketones Urine Blood Urine Nitrite Urine Bilirubin Urine Urobilinogen Ur Leukocyte Esterase Urine HCG, Qual Positive 10/01/19 16:55 WBC RBC Hgb Hct MCV MCH MCHC RDW Plt Count MPV Absolute Neuts (auto) Neutrophils % Lymphocytes % Monocytes % Eosinophils % Basophils % Nucleated RBC % Sodium Potassium Chloride Carbon Dioxide Anion Gap BUN Creatinine Est GFR (CKD-EPI)AfAm Est GFR (CKD-EPI)NonAf Random Glucose Calcium Total Bilirubin AST ALT Alkaline Phosphatase Total Protein Albumin Beta HCG, Quant Urine Color Yellow Urine Appearance Cloudy Urine pH 7.0 D Ur Specific Doole 1.028 Urine Protein Negative Urine Glucose (UA) Negative Urine Ketones Negative Urine Blood Negative Urine Nitrite Negative Urine Bilirubin Negative Urine Urobilinogen 1.0 Ur Leukocyte Esterase Negative Urine HCG, Qual US/ <14WKS US Obstetrical ultrasound Clinical information: , unknown weeks The exam demonstrates a single viable intrauterine gestation at approximately 8 weeks 0 days (crown -rump length 1.6 cm). Embryonic cardiac rate 152 BPM. No subchorionic implantation bleed is seen. There is no obvious uterine pathology. No free intraperitoneal fluid is noted. A 2.3 cm left ovarian cyst is seen without intraluminal debris/blood. The right ovary appears unremarkable. No Doppler evidence of ovarian torsion, sensitivity 70%. Impression: Single viable intrauterine gestation at approximately 8 weeks 0 days. 2.3 cm left ovarian cyst without intraluminal debris/blood. The Pt does not require Rhogam as she has had no vaginal bleeding. Workup is not concerning for emergency-level pathology at this time. The Pt is appropriate for discharge home w/ close outpatient f/u. The Pt is comfortable with this plan and will follow up with PCP in 1-3 days. She will also follow up with her INTERVENTIONAL TECH in 1-3 days (previously saw Dr. Lemons She will take primarily Tylenol for pain. Specific return precautions are discussed and they will come back to the ER if necessary. Discharge - Discharge Information Problems reviewed: Yes Clinical Impression/Diagnosis: Abdominal pain affecting Condition: Stable Disposition: HOME - Admission No - Follow up/Referral Referrals: Kaden Tello MD [Primary Care Provider] - Kandice Patel MD [Staff Physician] - - Patient Discharge Instructions Additional Instructions: You were seen in the ER for lower abdominal pain in . We did an exam, laboratory work on your blood and urine, and an ultrasound. After our assessment , we do not think you are having a medical emergency at this time, and you are safe to go home. Please take Tylenol for any mild-moderate pain. Follow up with your naval marine engineer/onstetrician and primary care provider in the next 1-3 days. Call their clinic [facility], tell them you were seen in the ER, and tell them you need an appointment. Please come back to the ER at any time (24 hours a day) for any new or worsening symptoms, like worsening pelvic pain, discharge, high fever, headache, seizure, fainting, anemia, large amount of blood loss, or other symptoms. If you are having severe or life threatening symptoms, or symptoms that make it unsafe to drive or have someone drive you, please call 911. - Post Discharge Activity
--- NOTE | 2019-10-01 18:56 | PDOC ---
Documentation entered by Gee Livingston SCRIBE, acting as scribe for Nima Quiroz MD. Nima Quiroz MD: This documentation has been prepared by the Miki wills Xhesika, SCRIBE, under my direction and personally reviewed by me in its entirety. I confirm that the documentation accurately reflects all work, treatment, procedures, and medical decision making performed by me. Attending Attestation - Resident Resident Name: Gretchen Rodriguez - ED Attending Attestation I have performed the following: I have examined & evaluated the patient, The case was reviewed & discussed with the resident, I agree w/resident's findings & plan, Exceptions are as noted - HPI HPI: 10/01/19 18:37 The patient is a 34 year old female, , with a PMH of HTN who presents to the ED for 2 weeks of abdominal cramping radiating to her periumbilical region. Pt reports associated nausea and several episodes of nbnb emesis. Pt states her LMP was 05/2019. Pt reports she took a home test back in July 2019 which was negative. The patient denies chest pain, shortness of breath, and dizziness. Denies fever , chills, cough, and constipation. Denies dysuria, frequency, urgency and hematuria. Allergy: NKDA - Physicial Exam PE: 10/01/19 18:37 Vitals: Triage Vital signs reviewed General Appearance: no acute distress, well nourished well developed, Neck: Supple;No Nuchal rigidity Chest Wall: Nontender Cardiac: Regular rate and rhythm, no murmurs, no rubs, no gallops, Lungs: Clear to auscultation bilateral, good air movement bilaterally, Abdomen: Soft, nondistended, normal bowel sounds, nontender to palpation Extremities: Full range of motion to all extremities, no cyanosis, clubbing, or edema Skin: Warm and dry, no rashes or lesions, no petechiae Neuro: AOX3; Cranial Nerves 2-12 grossly c intact, Strength intact to all extremities, Sensation intact to all extremities. Psych: normal mood, normal affect - Medical Decision Making 10/01/19 19:17 ? 34 years old G4, P4 last menstrual period May positive test at home presents with very mild diffuse abdominal discomfort no vaginal bleeding labs transvaginal ultrasound pending Dr. Summers to follow up labs transvaginal US and reasses
[2019-10-01 20:21] VITALS: BP 122/56; PULSE 89
== END 2019-10-01 20:20 | disposition home or self-care (01) ==
LOC: JER 16:36
DX: O26.891 Other specified pregnancy related conditions, first trimester (principal); R10.2 Pelvic and perineal pain; Z3A.08 8 weeks gestation of pregnancy; O10.911 Unspecified pre-existing hypertension complicating pregnancy, first trimester; O24.011 Pre-existing type 1 diabetes mellitus, in pregnancy, first trimester; E10.9 Type 1 diabetes mellitus without complications
CPT/HCPCS: 36415; 76801-TC; 80053; 81003; 84702; 84703; 85025; 87086; 99284-25

== ENCOUNTER 2022-08-04 13:11 | Emergency (ER) | payer OTHER ==
[2022-08-04 13:52] VITALS: BP 131/82; PULSE 74; RESP 18; TEMP 97.8; BMI 43.4
[2022-08-04] MEDS ORDERED: MECLIZINE HCL 12.5 MG TABLET PO ONE ×2 (15:57→18:12)
[2022-08-04] MEDS ORDERED: ONDANSETRON 4 MG/2 ML VIAL IVPUSH ONE (15:57)
[2022-08-04] MEDS ORDERED: SODIUM CHLORIDE 0.9% 500 ML INFUS.BAG IV ONE (15:57)
[2022-08-04] MEDS ORDERED: FAMOTIDINE 20 MG/50 ML IVPB 20 MG/50 ML MG IVPB ONE ×2 (15:57→16:07)
[2022-08-04] MEDS ORDERED: ONDANSETRON 4 MG/2 ML VIAL ONE (16:07)
[2022-08-04] MEDS ORDERED: MECLIZINE HCL 12.5 MG TABLET ONE ×2 (16:07→18:19)
[2022-08-04 16:56] LABS: BASO % 0.3 % (0-2.0); EOS % 0.5 % (0-4.5); HEMATOCRIT 40.7 % (32.4-45.2); HEMOGLOBIN 13.1 GM/dL (10.7-15.3); LYMPH % 22.4 % (8-40); MCH 27.8 pg (25.7-33.7); MCHC 32.3 g/dl (32.0-36.0); MEAN CELL VOLUME 86.1 fl (80-96); MEAN PLT VOLUME 7.7 fl (7.5-11.1); MONO % 3.6 % (3.8-10.2); NEUT % 73.2 % (42.8-82.8); PLATELET COUNT 249 10^3/uL (134-434); RBC 4.73 M/mm3 (3.60-5.2); RDW 14.2 % (11.6-15.6); WHITE BLOOD COUNT 6.8 K/mm3 (4.0-10.0)
[2022-08-04 17:16] LABS: CALCIUM 8.7 mg/dL (8.5-10.1)
[2022-08-04 17:17] LABS: ALBUMIN 3.6 g/dl (3.4-5.0); BLOOD UREA NITROGEN 11.4 mg/dL (7-18)
[2022-08-04 17:20] LABS: CREATININE 0.6 mg/dL (0.55-1.3)
[2022-08-04 17:21] LABS: TOT PROT 7.6 g/dl (6.4-8.2)
[2022-08-04 17:22] LABS: BILIRUBIN,TOTAL 0.4 mg/dL (0.2-1)
== END 2022-08-04 18:21 | disposition home or self-care (01) ==
LOC: JER 13:11
PROC: 3E033GC Introduction of Other Therapeutic Substance into Peripheral Vein, Percutaneous Approach (ICD-10-PCS; principal; 2022-08-04)
DX: R42 Dizziness and giddiness (principal)
CPT/HCPCS: 36415; 71046-TC-FY; 80053; 83036; 84484; 84703; 85025; 93005; 93010; 99285-25